=== PATIENT | female | born 1965 | race Asian ===

== ENCOUNTER 2019-05-01 | Emergency (ER) | payer OTHER ==
[2019-05-01] MEDS: DEXAMETHASONE 10 MG/ML 1 ML INJ IM (03:44)
[2019-05-01] MEDS: DIPHENHYDRAMINE 50 MG INJ IM (03:44)
== END 2019-05-01 03:50 | disposition home or self-care (01) ==
LOC: FTE
DX: L50.9 Urticaria, unspecified (principal)
CPT/HCPCS: 96372; 99284-25